=== PATIENT | female | born 1950 | race Caucasian/White ===

== ENCOUNTER → 2017-01-30 | Outpatient (CLI) | payer BC ==
[~2017-01-30] MED LIST: ACHD5005 PO; DULO60CA6 PO; ESTR1TAB24 PO; GBPN100C PO; PREMPRO; ZLP10T; [UNRECOGNIZED DRUG - OTHER]
--- NOTE | 2017-01-30 13:08 | Diagnostic Imaging Report ---
INDICATION: Left ankle pain. TECHNIQUE: AP, oblique, and lateral views of the left ankle were obtained. FINDINGS: There is mild posterior and plantar calcaneal spurring. No acute fracture or malalignment is identified. There is no abnormal lytic or sclerotic focus. IMPRESSION: Posterior calcaneal spurring without radiographic evidence of acute abnormality. Dictated by: Dictated on workstation # [id number]
== END ==
LOC: RAD 12:38
PROVIDERS: ATTEND Nurse Practitioner Family
DX: M77.32 Calcaneal spur, left foot (principal); M25.572 Pain in left ankle and joints of left foot
CPT/HCPCS: 73610

== ENCOUNTER → 2017-02-09 | Outpatient (CLI) | payer BC ==
--- NOTE | 2017-02-11 12:18 | Diagnostic Imaging Report ---
Bilateral screening mammogram The current study was also evaluated with a Computer Aided Detection (CAD) system. INDICATION: Screening. No current complaints stated on the questionnaire. COMPARISON: 07/13/2015. FINDINGS: The breasts are composed of heterogeneously dense parenchyma which may decrease mammographic sensitivity. There is no mass, architectural distortion, or suspicious cluster of calcifications seen. Allowing for technique and positional differences, no suspicious change is seen. IMPRESSION: Dense breasts with no definite change. ACR BI-RADS Category 2: Benign findings. Result letter will be mailed to the patient. Note: At least 10% of breast cancer is not imaged by mammography. Dictated by: Dictated on workstation # [id number]
== END ==
LOC: RAD 10:00
PROVIDERS: ATTEND Nurse Practitioner Family
DX: Z12.31 Encounter for screening mammogram for malignant neoplasm of breast (principal)
CPT/HCPCS: 77067

== ENCOUNTER → 2018-03-08 | Outpatient (CLI) | payer MEDICARE ==
--- NOTE | 2018-03-08 13:56 | Diagnostic Imaging Report ---
INDICATION: Routine screening. COMPARISON: 02/09/2017 and 07/13/2015. TECHNIQUE: 2D and 3D bilateral screening mammography was performed with CAD. FINDINGS: Scattered fibroglandular densities are identified bilaterally. The parenchymal pattern is stable. No mass or malignant appearing microcalcifications are seen. The axillae are unremarkable. IMPRESSION: No mammographic features suspicious for malignancy are identified. ACR BI-RADS Category 1: Negative. Result letter will be mailed to the patient. Note: At least 10% of breast cancer is not imaged by mammography. Dictated by: Dictated on workstation # [id number]
== END ==
LOC: RAD 12:46
PROVIDERS: ATTEND Nurse Practitioner Family
DX: Z12.31 Encounter for screening mammogram for malignant neoplasm of breast (principal)
CPT/HCPCS: 77067

== ENCOUNTER → 2019-05-03 | Outpatient (CLI) | payer MEDICARE ==
--- NOTE | 2019-05-03 14:48 | Diagnostic Imaging Report ---
INDICATION: Routine screening. COMPARISON: 03/08/2018 and 02/09/2017. TECHNIQUE: 2D and 3D bilateral screening mammography was performed with CAD. FINDINGS: Both breasts remain heterogeneously dense, limiting the sensitivity of mammography. No mass or malignant appearing microcalcifications are seen. The axillae are unremarkable. IMPRESSION: No mammographic features suspicious for malignancy are identified. ACR BI-RADS Category 1: Negative. Result letter will be mailed to the patient. Note: At least 10% of breast cancer is not imaged by mammography. Dictated by: Dictated on workstation # [id number]
== END ==
LOC: RAD 08:05
PROVIDERS: ATTEND Nurse Practitioner Family
DX: Z12.31 Encounter for screening mammogram for malignant neoplasm of breast (principal)
CPT/HCPCS: 77067

== ENCOUNTER → 2019-09-23 | Outpatient (CLI) | payer MEDICARE, OTHER ==
--- NOTE | 2019-09-23 10:24 | Diagnostic Imaging Report ---
PROCEDURE: US Thyroid. TECHNIQUE: Multiple real-time grayscale images were obtained of the thyroid in various projections. INDICATION: Dysphagia. COMPARISON: None available. FINDINGS: Right thyroid lobe: Right hemithyroidectomy has been performed. There are no features of recurrent/residual thyroid tissue in the surgical bed. Isthmus: The thyroid isthmus is normal in echogenicity and thickness measuring 0.3 cm. Left thyroid lobe: The left thyroid lobe measures 5.3 x 2.1 x 2.2 cm. There is a single spongiform-appearing circumscribed nodule in the lower pole measuring 0.5 x 0.4 x 0.5 cm. This is wider than tall and has no associated mineralizations. IMPRESSION: 1. Right hemithyroidectomy without features of recurrent/residual soft tissue in the surgical bed. 2. Benign subcentimeter left thyroid nodule. No dedicated pelvic imaging is required based on morphology. ACR TI-RADS: TR1 (0). TI-RADS Recommendations:TR1 - Benign. No FNA Dictated by: Dictated on workstation # [id number]
== END ==
LOC: RAD 08:36
PROVIDERS: ATTEND Nurse Practitioner Family
DX: E04.1 Nontoxic single thyroid nodule (principal); R13.10 Dysphagia, unspecified; E89.0 Postprocedural hypothyroidism
CPT/HCPCS: 76536

== ENCOUNTER → 2020-06-01 | Outpatient (CLI) | payer MEDICARE, OTHER ==
--- NOTE | 2020-06-01 13:50 | Diagnostic Imaging Report ---
INDICATION: Routine screening. Comparison is made with prior mammogram 05/03/2019 and 03/08/2018. 2-D and 3-D bilateral screening mammography was performed with CAD. Both breasts are heterogeneously dense, limiting the sensitivity of mammography. The parenchymal pattern is stable. No mass or malignant appearing microcalcifications are seen. Axillae are unremarkable. IMPRESSION: BI-RADS Category 1 No mammographic features suspicious for malignancy are identified. ACR BI-RADS Category 1: Negative. Result letter will be mailed to the patient. Note: At least 10% of breast cancer is not imaged by mammography. Dictated by: Dictated on workstation # [id number]
== END ==
LOC: RAD 10:15
PROVIDERS: ATTEND Family Medicine
DX: Z12.31 Encounter for screening mammogram for malignant neoplasm of breast (principal)
CPT/HCPCS: 77063; 77067

== ENCOUNTER → 2021-08-30 | Outpatient (CLI) | payer MEDICARE, OTHER ==
--- NOTE | 2021-09-02 09:44 | Diagnostic Imaging Report ---
INDICATION: Routine screening. Comparison is made prior mammogram from 06/01/2020 and 05/03/2019. 2-D and 3-D bilateral screening mammography was performed with CAD. Both breasts are heterogeneously dense, limiting the sensitivity of mammography. The parenchymal pattern is stable. No mass or malignant-appearing microcalcifications are seen. Axillae are unremarkable. IMPRESSION: No mammographic features suspicious for malignancy are identified. BI-RADS Category 1 ACR BI-RADS Category 1: Negative. Result letter will be mailed to the patient. Note: At least 10% of breast cancer is not imaged by mammography. Dictated by: Dictated on workstation # [id number]
== END ==
LOC: RAD 14:45
PROVIDERS: ATTEND Nurse Practitioner Family
DX: Z12.31 Encounter for screening mammogram for malignant neoplasm of breast (principal)
CPT/HCPCS: 77063; 77067

== ENCOUNTER 2021-10-09 07:53 | Outpatient (RCR) | payer MEDICARE, OTHER ==
[~2021-10-09] VITALS: Ht 165.1 cm; Wt 86.3 kg
[2021-10-09 11:35] LABS: BASOPHILS # (AUTO) 0.1 10^3/uL (0.0-0.1); BASOPHILS % (AUTO) 1 % (0-10); EOSINOPHILS # (AUTO) 0.1 10^3/uL (0.0-0.3); EOSINOPHILS % (AUTO) 2 % (0-10); HEMATOCRIT 38 % (35-52); HEMOGLOBIN 12.6 g/dL (11.5-16.0); LYMPHOCYTES # (AUTO) 2.1 10^3/uL (1.0-4.0); LYMPHOCYTES % (AUTO) 31 % (12-44); MEAN CORPUSCULAR HEMOGLOBIN 31 pg (25-34); MEAN CORPUSCULAR HGB CONC 33 g/dL (32-36); MEAN CORPUSCULAR VOLUME 93 fL (80-99); MEAN PLATELET VOLUME 10.8 fL (9.0-12.2); MONOCYTES # (AUTO) 0.5 10^3/uL (0.0-1.0); MONOCYTES % (AUTO) 7 % (0-12); NEUTROPHILS # (AUTO) 3.9 10^3/uL (1.8-7.8); NEUTROPHILS % (AUTO) 59 % (42-75); PLATELET COUNT 276 10^3/uL (130-400); WHITE BLOOD COUNT 6.7 10^3/uL (4.3-11.0)
[2021-10-09 11:42] LABS: BILIRUBIN,URINE NEGATIVE (NEGATIVE); CLARITY,URINE CLEAR; COLOR,URINE YELLOW; GLUCOSE, URINE (UA) NEGATIVE (NEGATIVE); KETONES,URINE NEGATIVE (NEGATIVE); LEUKOCYTE ESTERASE ,URINE NEGATIVE (NEGATIVE); NITRITE,URINE NEGATIVE (NEGATIVE); PROTEIN,URINE NEGATIVE (NEGATIVE)
--- NOTE | 2021-10-09 11:46 | Diagnostic Imaging Report ---
INDICATION: Preop for knee surgery. TIME OF EXAM: 11:35 AM. COMPARISON: No prior studies are available for comparison. FINDINGS: The heart size is normal. The pulmonary vascularity is unremarkable. The lungs are clear. No infiltrate, effusion, or pneumothorax is detected. IMPRESSION: No acute cardiopulmonary process is detected. Dictated by: Dictated on workstation # [id number]
[2021-10-09 11:55] LABS: ALBUMIN 3.8 GM/DL (3.2-4.5); BILIRUBIN,TOTAL 0.2 MG/DL (0.1-1.0); CALCIUM 9.7 MG/DL (8.5-10.1); CREATININE SERUM 0.76 MG/DL (0.60-1.30); INR 0.9 (0.8-1.4); POTASSIUM 3.6 MMOL/L (3.6-5.0); PROTHROMBIN TIME PATIENT 12.8 SEC (12.2-14.7); TOTAL PROTEIN 7.1 GM/DL (6.4-8.2)
[2021-10-09 12:02] LABS: BACTERIA,URINE NEGATIVE /HPF; RBC,URINE RARE /HPF; WBC,URINE RARE /HPF
[2021-10-09 12:12] LABS: ERYTHROCYTE SEDIMENTATION RATE 23 MM/HR (0-30)
[2021-10-09 12:51] VITALS: BP 141/81
[2021-10-09] MEDS ORDERED: ESTR10TA9 PO (13:13)
[2021-10-09] MEDS ORDERED: DOCU-26 PO (13:13)
[2021-10-09] MEDS ORDERED: CETI10CA PO (13:13)
[2021-10-09] MEDS ORDERED: OMEP20TA33 PO (13:13)
[2021-10-09] MEDS ORDERED: CYAN100071 PO (13:13)
[2021-10-09] MEDS ORDERED: GABA300S2 PO (13:13)
[2021-10-09] MEDS ORDERED: ZOLP5TAB7 PO (13:13)
[2021-10-09] MEDS ORDERED: MV-M1TAB20 PO (13:13)
[2021-10-09] MEDS ORDERED: DULO60CA59 PO (13:13)
[2021-10-09] MEDS ORDERED: IBUP-1773 PO (13:13)
[2021-10-09] MEDS ORDERED: MTP25TSR PO ×2 (13:13)
== END 2021-10-09 13:32 | disposition home or self-care (01) ==
LOC: PREOP 07:53 → EDSTATUS 10:00 → PREOP 13:32
PROVIDERS: ATTEND Orthopaedic Surgery
DX: Z01.818 Encounter for other preprocedural examination (principal); M17.12 Unilateral primary osteoarthritis, left knee; R10.13 Epigastric pain; R11.0 Nausea; Z96.652 Presence of left artificial knee joint
CPT/HCPCS: 36415; 71046; 80053; 81000; 85025; 85610; 85652; 86850; 86900; 86901; 87081; 93005

== ENCOUNTER 2021-10-16 05:48 | Inpatient (IN) | payer MEDICARE, OTHER ==
--- NOTE | 2021-10-08 17:39 | HISTORY AND PHYSICAL ---
DATE OF SERVICE: ADMISSION HISTORY AND PHYSICAL This will be for inpatient admission on 10/16/2021 for left total knee arthroplasty. The patient will require regular inpatient admission due to pain management, need for physical therapy, gait abnormalities and comorbidities. HISTORY: The patient is a 70-year-old female with long-standing progressive left knee pain. She has undergone treatment with injections as well as arthroscopy and activity modifications. Her pain has progressed to the point where she is having difficulty with activities of daily living and pain in her adjacent joints. She reports occasional instability in her knee due to pain. Radiographs reveal severe medial and patellofemoral arthrosis with complete loss of joint spaces. Due to functional impairment, the patient has elected to proceed with surgical intervention. REVIEW OF SYSTEMS: No chest pain, no shortness of breath, no dysuria. PAST MEDICAL HISTORY: Back pain, depression, hypertension, diabetes, COVID-19. PAST SURGICAL HISTORY: section, cholecystectomy, hysterectomy, thyroidectomy, left knee arthroscopy. FAMILY HISTORY: Significant for ischemic heart disease, hypertension. PRIMARY CARE PROVIDER: Dr. Sweeney. MEDICATIONS: Stool softener, metoprolol, Zyrtec, Prilosec, esterase, Cymbalta, calcium, ibuprofen, zolpidem, gabapentin, vitamin B12. ALLERGIES: No known drug allergies. SOCIAL HISTORY: The patient denies alcohol and tobacco use. PHYSICAL EXAMINATION: GENERAL: The patient is well developed, well nourished, in no acute distress. HEENT: Normocephalic, atraumatic. Pupils are equal, round and reactive to light. Oropharynx is clear. NECK: Supple, with no lymphadenopathy. LUNGS: Clear to auscultation bilaterally. HEART: Regular rate and rhythm. ABDOMEN: Soft, nontender, nondistended. EXTREMITIES: The left knee demonstrates varus alignment. No skin lesions are noted. She has no varus or valgus laxity. Negative anterior and posterior drawer. Range of motion is 0/2/125. She is tender along the medial femoral condyle and has pain medially with [place]'s. She has pain with patellar loading and ambulates with an antalgic gait. IMPRESSION: Severe left knee osteoarthritis, unresponsive to conservative measures. PLAN: Left total knee arthroplasty. The risks, benefits, options, ramifications and recovery have been discussed at length with the patient. She understands and wishes to proceed. Job ID: [id number] DocumentID: [id number] Dictated Date: 10/01/2021 13:22:15 Process Control Tech Date: 10/01/2021 13:45:05 Dictated By: SOPHIA TAVAREZ MD
[2021-10-16] VITALS (13 sets, daily range): BP systolic 123–166; BP diastolic 57–95
[~2021-10-16] VITALS: Ht 165 cm; Wt 86.3 kg
[~2021-10-16 05:48] MED LIST changes: +CETI10CA PO; +CYAN100071 PO; +DOCU-26 PO; +DULO60CA59 PO; +ESTR10TA9 PO; +GABA300S2 PO; +IBUP-1773 PO; +MTP25TSR PO; +MV-M1TAB20 PO; +OMEP20TA33 PO; +ZOLP5TAB7 PO
[2021-10-16] MEDS ORDERED: NEOSTIGMINE 3 MG/3 ML VIAL ONE (06:46)
[2021-10-16] MEDS ORDERED: ONDANSETRON 4 MG/2 ML (SDV) Z0FRAN ONE (06:46)
[2021-10-16] MEDS ORDERED: ROCURONIUM 10 MG/ML 5 ML SYRINGE IV ONE (06:46)
[2021-10-16] MEDS ORDERED: proPOfol 200 MG/20 ML (DIPRIVAN) VIAL IV ONE (06:46)
[2021-10-16] MEDS ORDERED: GLYCOPYRROLATE 0.2 MG/ML (ROBINUL) 2 ML VIAL ONE (06:46)
[2021-10-16] MEDS ORDERED: LIDOCAINE PF 2% 5 ML (XYLOCAINE) VIAL ONE (06:46)
[2021-10-16] MEDS ORDERED: fentaNYL INJ 100 MCG/2 ML AMP ONE (06:47)
[2021-10-16] MEDS ORDERED: MIDAZOLAM 2 MG/2 ML (VERSED) VIAL ONE (06:47)
[2021-10-16] MEDS ORDERED: BUPIVACAINE 0.25% 30 ML (SENSORCAINE) VIAL ONE (06:49)
[2021-10-16] MEDS: LACTATED RINGERS 1,000 ML IV PRN ×2 (07:03→08:04)
[2021-10-16] MEDS: CEFUROXIME INJECTION 1,500 MG in NS (IVPB) 50 ML IV ONE ×2 (07:29→08:01)
[2021-10-16] MEDS ORDERED: NALOXONE 0.4 MG/ML 1 ML (NARCAN) VIAL IV PRN (07:30)
[2021-10-16] MEDS ORDERED: morphine PCA 100 MG/100 ML BAG IV PRN (07:30)
[2021-10-16] MEDS ORDERED: HYDROmorphone 2 MG/ML VIAL (DILAUDID) IV ONE (07:30)
[2021-10-16] MEDS ORDERED: diphenhydrAMINE 50 MG/ML INJ (BENADRYL) IVP PRN (07:30)
[2021-10-16] MEDS ORDERED: ONDANSETRON 4 MG/2 ML (SDV) Z0FRAN IVP PRN ×2 (07:30)
[2021-10-16] MEDS ORDERED: morphine INJ 10 MG/ML 1ML (SYR OR VIAL) IVP ONE (07:30)
--- NOTE | 2021-10-16 07:30 | Progress Note-Post Operative ---
Post-Operative Progess Note Surgeon (s)/Lamp Cleaner (s) Surgeon SOPHIA TAVAREZ MD Lamp Cleaner: Parish Garcia Pre-Operative Diagnosis left knee primary osteoarthritis Post-Operative Diagnosis left knee primary osteoarthritis Procedure & Operative Findings Date of Procedure 10/16/21 Procedure Performed/Findings left total knee arthroplasty Anesthesia Type GETA Estimated Blood Loss Estimated blood loss (mL): minimal Specimens/Packing Specimens Removed none Packing: none SOPHIA TAVAREZ MD Oct 16, 2021 07:30
--- NOTE | 2021-10-16 07:30 | Progress Note-Pre Operative ---
Pre-Operative Progress Note H&P Reviewed The H&P was reviewed, patient examined and no changes noted. Date Seen by Provider: Oct 16, 2021 Time Seen by Provider: 07:22 Date H&P Reviewed: Oct 16, 2021 Time H&P Reviewed: 07:11 Pre-Operative Diagnosis: left knee primary osteoarthritis SOPHIA TAVAREZ MD Oct 16, 2021 07:29
--- NOTE | 2021-10-16 07:32 | D/C HH Face to Face Order ---
D/C Face to Face Orders Reconcile Patient Problems Problems Reviewed?: Yes Instructions for Patient Via [employer], Patient Instructions/FollowUp: three weeks Physician to follow Patient: three weeks Discharge Diet for Home: Regular Diet Patient Data-Allergies,Ht & Wt Patient Allergies: Coded Allergies: No Known Drug Allergies (Verified , 12/10/09) Home Health Need/Face to Face Date of Face to Face: Oct 16, 2021 Clinical Findings: Muscle weakness, Pain with ambulation I have seen Pt kizz-ul-pfxi: Yes Discharged To: Home Diagnosis/Conditions: left total knee arthroplasty Patient is Homebound due to: Muscle weakness, Pain w/ambulation Homebound Status Due to the above stated illness, injury or surgical procedure (medical condition or diagnosis) and associated clinical findings, the patient is homebound because of his/her inability to leave home except with aid of a supportive device and/or person AND leaving the home requires a considerable and taxing effort or is medically contraindicated. Pt req the following assistanc: Walker Home Health Nursing Orders Home Health Services Order: Physical Therapy-Evaluate & Treat DC left knee daron and apply steri strips 10/30/21 Home Health Infusion Therapy Line Start Date: Oct 16, 2021 Therapy Orders Therapy Orders: Physical Therapy, PT to assess for OT Therapy Specific Orders: Eval assistive deivces, Teach enviro modificatio ns/safety, Gait training, Increase strength/endurance, Provider maintenance therapy, Restore ROM Certify Stmt I certify that this patient is under my care and that I, a nurse practitioner or a physician; a surgeon assistant working with me, had a face to face encounter that - meets the physician face to face encounter requirements with this patient as dated. SOPHIA TAVAREZ MD Oct 16, 2021 07:32
[2021-10-16] MEDS ORDERED: TRANEXAMIC ACID 100 MG/ML 10 ML INJECTION ONE (07:36)
[2021-10-16] MEDS ORDERED: INTRA-ARTICULAR IU ONE ×5 (07:45)
[2021-10-16] MEDS ORDERED: HYDROmorphone 2 MG/ML VIAL (DILAUDID) ONE (07:59)
[2021-10-16] MEDS ORDERED: SEVOFLURANE (ULTANE) 15 ML INHAL SOLN ONE (08:50)
--- NOTE | 2021-10-16 09:43 | Diagnostic Imaging Report ---
INDICATION: Status post left knee replacement COMPARISON: None. FINDINGS: Two views of the left knee were obtained. Expected postoperative changes are seen from left knee total arthroplasty. Femoral and tibial components appear well-seated. There is no evidence of periprosthetic fracture. There is a small amount of subcutaneous emphysema in the soft tissues over the knee, skin daron are seen centrally over the anterior aspect of the knee. No unexpected radiopaque foreign bodies are identified. IMPRESSION: Expected postsurgical changes from left knee total arthroplasty, as described above. No unexpected radiopaque foreign bodies. Dictated by: Dictated on workstation # [id number]
[2021-10-16] MEDS: NS IV 1000 ML 1,000 ML IV SCH ×3 (10:11→22:44)
--- NOTE | 2021-10-16 11:18 | Progress Note ---
Standard Progress Note Progress Notes/Assess & Plan Date Seen by a Provider: Oct 16, 2021 Time Seen by a Provider: 11:17 Final Diagnosis no complaints radiographs--HW well positioned without fracture LLE--2 plus DP pulse with brisk cap refill. Intact DF and PF of toes and ankle sensation intact throughout s/p LTKA mobilize as able SOPHIA TAVAREZ MD Oct 16, 2021 11:18
[2021-10-16] MEDS: SENNA W/DOCUSATE (SENOKOT S) TABLET PO SCH ×2 (11:54→21:29)
--- NOTE | 2021-10-16 14:10 | Physical Therapy Evaluation ---
PT Evaluation-General Medical Diagnosis Admission Date Oct 16, 2021 at 05:48 Medical Diagnosis: left TKA Onset Date: Oct 16, 2021 Therapy Diagnosis Therapy Diagnosis: impaired mobility, strength, ROM Referral Physician: Jose Reason for Referral: Evaluation/Treatment Medical History Additional Medical History PAST MEDICAL HISTORY: Back pain, depression, hypertension, diabetes, COVID-19. PAST SURGICAL HISTORY: section, cholecystectomy, hysterectomy, thyroidectomy, left knee arthroscopy. Reviewed History: Yes Social History Home: Multilevel Current Living Status: Spouse Entry Into Home: Stairs With Railing PT Steps Into Home: 5 Prior Prior Level of Function SCALE: Activities may be completed with or without assistive devices. 8-Jymzwhuome-tbqdagf completes the activity by him/herself with no assistance from a helper. 5-Set-up or Clean-up Assistance-helper sets up or cleans up; patient completes activity. Mays assists only prior to or following the activity. 4-Supervision or Touching Assistance-helper provides verbal cues and/or touching/steadying and/or contact guard assistance as patient completes activity. Assistance may be provided throughout the activity or intermittently. 3-Partial/Moderate Assistance-helper does LESS THAN HALF the effort. Mays lifts, holds or supports trunk or limbs, but provides less than half the effort. 2-Substantial/Maximal Assistance-helper does MORE THAN HALF the effort. Mays lifts or holds trunk or limbs and provides more than half the effort. 4-Zmpkmjybx-ogojbl does ALL the effort. Patient does none of the effort to complete the activity. Or, the assistance of 2 or more helpers is required for the patient to complete the activity. If activity was not attempted, code reason: 7-Patient Refused. 9-Not Applicable-not attempted and the patient did not perform the activity before the current illness, exacerbation or injury. 10-Not Attempted due to Environmental Limitations-(lack of equipment, weather restraints, etc.). 88-Not Attempted due to Medical Conditions or Safety Concerns. Bed Mobility: 6 Transfers (B,C,W/C): 6 Gait: 6 Stairs: 6 Indoor Mobility (Ambulation): Independent Stairs: Independent PT Evaluation-Current Subjective Patient in bed pre tx, agrees to PT, has 5/10 pain in left knee. Pt/Family Goals to be independent at home Objective Patient Orientation: Person, Place, Situation Attachments: Oxygen, IV ROM/Strength ROM Lower Extremities left knee flexion 90 degrees, extension +5 degrees Sensory Vision: Functional Hearing: Functional Sensation Right Lower Extremit: Intact Sensation Left Lower Extremity: Intact Transfers Roll Left to Right (QC): 6 Sit to Lying (QC): 6 Lying to Sitting/Side of Bed(Q: 6 Sit to Stand (QC): 4 Gait Does the Patient Walk?: Yes Mode of Locomotion: Walk Anticipated Mode of Locomotion: Walk Walk 10 feet (QC): 4 Distance: 40' Gait Assistive Device: FWW Comments/Gait Description slow but stead ambulation, good step through Balance Sitting Static: Normal Sitting Dynamic: Normal Standing Static: Good Standing Dynamic: Good Treatment LLE total knee protocol x10 (AP, QS, HS, SLR, SAQ) Assessment/Needs Patient in bed post tx with nurse call, phone, tray, all needs met. Patient has impaired mobility, strength, ROM. Just needs CGA for standing and transfers Rehab Potential: Fair PT Director Funds Development Goals [facility] Goals PT Director Funds Development Goals Time Frame: Oct 23, 2021 Roll Left & Right (QC): 6 Sit to Lying (QC): 6 Lying-Sitting on Side/Bed(QC): 6 Sit to Stand (QC): 6 Chair/Awj-gu-Jnbte Xfer(QC): 6 Walk 10 feet (QC): 6 Walk 50ft with 2 Turns (QC): 6 Walk 150 ft (QC): 6 1 Step (curb) (QC): 4 4 Steps (QC): 4 PT Plan Problem List Problem List: Activity Tolerance, Functional Strength, Safety, Balance, Gait, Transfer, Bed Mobility, ROM Treatment/Plan Treatment Plan: Continue Plan of Care Treatment Plan: Bed Mobility, Education, Functional Activity Alirio, Functional Strength, Gait, Safety, Therapeutic Exercise, Transfers Treatment Duration: Oct 23, 2021 Frequency: 11 times per week Estimated Hrs Per Day: .25 hour per day Patient and/or Family Agrees t: Yes Safety Risks/Education Patient Education: Gait Training, Transfer Techniques, Correct Positioning, Safety Issues Teaching Recipient: Patient Teaching Methods: Demonstration, Discussion Response to Teaching: Reinforcement Needed Discharge Recommendations Plan Patient will perform bed mobility and transfer training, balance and endurance training, functional strengthening, stair training, gait training, and education, to improve functional mobility and independence at home. Therapy Discharge Recommendati: Home & Family, Post Acute PT Time/GCodes Time In: 1319 Time Out: 1335 Total Billed Treatment Time: 16 Total Billed Treatment 1 visit EVL 16' CATIE RAMIREZ PT Oct 16, 2021 14:10
[2021-10-16] MEDS ORDERED: ZINC50TA58 PO (14:30)
[2021-10-16] MEDS ORDERED: ACHD5005 PO (14:30)
[2021-10-16] MEDS ORDERED: GABA300C PO (14:30)
[2021-10-16] MEDS ORDERED: ASPI-1238 PO (14:30)
[2021-10-16] MEDS ORDERED: METF-397 PO (14:30)
[2021-10-16] MEDS ORDERED: ESTR2TAB3 PO (14:30)
[2021-10-16] MEDS ORDERED: CYCL1DRO OU (14:30)
[2021-10-16] MEDS ORDERED: CHOL100048 PO (14:30)
--- NOTE | 2021-10-16 14:32 | OPERATIVE REPORT ---
DATE OF SERVICE: 10/16/2021 PREOPERATIVE DIAGNOSIS: Left knee primary osteoarthritis. POSTOPERATIVE DIAGNOSIS: Left knee primary osteoarthritis. PROCEDURE PERFORMED: Left total knee arthroplasty. SURGEON: Jason Tavarez MD. FAST FOOD CREW LEAD: Parish Garcia, who assisted throughout the procedure and closed the incision. ANESTHESIA: General endotracheal plus femoral nerve block by Dr. Kraus. TOURNIQUET TIME: Approximately 60 minutes at 300 mmHg. ESTIMATED BLOOD LOSS: Minimal. DRAINS: None. COMPLICATIONS: None. POSTOPERATIVE PLAN: Routine protocol. The patient was transferred to the recovery room awake and in stable condition. MATERIALS: Microport cemented size 4 femur, cemented size 3 tibia with a 10 mm insert and cemented size 29 patellar button. STATEMENT OF MEDICAL NECESSITY: The patient is a 70-year-old female with longstanding progressive left knee pain. She has undergone treatment with injections, arthroscopy, anti-inflammatories, and rest without relief. Due to functional impairment and failure to improve with conservative measures, the patient elected to proceed with surgical intervention. DESCRIPTION OF PROCEDURE: After risks and benefits of the procedure were discussed and questions were answered, an informed consent was signed and placed on chart, the operative site was confirmed in preoperative holding area initialed by the surgeon. The patient was then transferred to the operating room and after adequate levels of general endotracheal anesthetic were obtained, a timeout was called, confirming the operative site. The left lower extremity was prepped and draped in the usual sterile fashion with the leg elevated and the knee flexed. Tourniquet was inflated to 300 mmHg. Standard anterior approach was utilized. Hemostasis was obtained with cautery. Medial parapatellar arthrotomy was performed leaving 1 cm cuff on the patella for later reattachment. A portion of the fat pad was resected. A subperiosteal release was performed on the proximal medial tibia being careful to stay on the bony surface. The ACL was resected. Intramedullary guide was passed into the femoral canal and the distal cutting block was placed. Distal cut was made and the femur sized to a size 4. The 4 cutting block was placed parallel to the epicondylar axis and cuts were made from posterior to anterior. Subperiosteal release was then carefully performed on the posterior distal femur, being careful to stay on the bony surface. The intramedullary guide was then passed into the tibia. The cutting block was placed. The drop gene transected the intermalleolar axis and the cut was made. The three baseplate provided excellent coverage. This was pinned into position and then prepared with the drill and keel punch after ensuring that the drop gene was well positioned. The femoral trial was placed and the trochlear cut was made. The patella was then prepared by resecting 10 mm off the undersurface. The peg guide was placed and the peg holes were drilled. The trials were inserted with a 10 mm insert. Full extension was easily obtained with 20 degrees of flexion with gravity was easily obtained. There was no anterior/posterior or medial/lateral laxity in flexion or extension. The patella tracked well. The trials were removed. The joint was irrigated with pulse lavage. The articular block was placed in the posterior capsule, medial and lateral retinaculum, extensor mechanism, and subcutaneous tissues. The bone ends were irrigated and dried and the tibial baseplate was cemented into position. Excessive cement was removed, the superior surface was irrigated and dried and the polyethylene insert was placed. The distal femur was irrigated and dried and the femoral prosthesis was cemented into position. Excessive cement was removed. The knee was brought out into full extension until cement had cured. The undersurface of the patella was irrigated and dried and the patellar button was cemented into position. Once the cement had cured, the knee was taken through range of motion. Full extension was easily obtained under 20 degrees of flexion with gravity was easily obtained. There was no anterior/posterior or medial/lateral laxity in flexion or extension and the patella tracked well. The joint was further irrigated with pulse lavage. The arthrotomy was closed with #2 Tevdek in ehrgyl-vj-zmcen interrupted fashion. Knee was flexed. The repair was stable. The patella tracked well. The subcutaneous tissues were irrigated using a total of 6 liters throughout the procedure. A 0 Vicryl was used to close deep subcutaneous layer, 2-0 Vicryl for the superficial subcutaneous layer, daron used on the skin. A soft dressing was applied. The tourniquet was deflated. The patient was transferred to the recovery room awake and in stable condition. Job ID: [id number] DocumentID: [id number] Dictated Date: 10/16/2021 09:07:55 Feather Duster Winder Date: 10/16/2021 14:31:53 Dictated By: JASON TAVAREZ MD
[2021-10-16] MEDS: CEFUROXIME INJECTION 750 MG in NS (IVPB) 50 ML IV SCH ×2 (15:58→22:41)
[2021-10-16] MEDS: oxyCODONE/APAP 5/325MG (PERCOCET 5) TABLET PO PRN ×2 (16:05→21:29)
--- NOTE | 2021-10-16 20:39 | History & Physicial ---
History of Present Illness History of Present Illness Reason for visit/HPI PT IS A 70 Y/O FEMALE WHO IS A PATIENT IN MY MEDICAL [facility]ACTICE. SHE PRESENTED TO THE HOSPITAL FOR A PLANNED LEFT TOTAL KNEE REPLACEMENT. THE PATIENT REPORTS THAT SHE HAS QUITE A BIT OF PAIN THIS AFTERNOON, SHE REPORTS THAT HER KNEE IS PRETTY UNCOMFORTABLE, SHE IS UNSURE IF THE ICE PACK HAS BEEN WORKING AT ALL SINCE SHE HAD THERAPY EARLIER. Date of Admission Oct 16, 2021 at 05:48 Date Seen by a Provider: Oct 16, 2021 Time Seen by a Provider: 15:30 I consulted on this patient on 10/16/21 20:28 Attending Physician Jason Yanes MD Admitting Physician JASON YANES MD Consult GLEN LEGGETT MD Allergies and Home Medications Allergies Coded Allergies: No Known Drug Allergies (Verified , 12/10/09) Patient Home Medication List Home Medication List Reviewed: Yes Aspirin (Aspirin EC) 81 Mg Tablet.dr, 81 MG PO DAILY, (Reported) Entered as Reported by: ORLANDO GRAVES on 10/16/211429 Last Action: Reviewed Cetirizine HCl (Zyrtec) 10 Mg Capsule, 10 MG PO DAILY, (Reported) Entered as Reported by: AMAN FREIRE on 10/09/211312 Last Action: Converted Cholecalciferol (Vitamin D3) (Vitamin D3) 25 Mcg Capsule, 25 MCG PO DAILY, (Reported) Entered as Reported by: ORLANDO GRAVES on 10/16/211429 Last Action: Converted Cyanocobalamin (Vitamin B-12) (B-12) 1,000 Mcg Tablet.er, 1,000 MCG PO DAILY, (Reported) Entered as Reported by: AMAN FREIRE on 10/09/211312 Last Action: Held Cyclosporine (Restasis) 1 Each Droperette, 1 DROP OU BID, (Reported) Entered as Reported by: ORLANDO GRAVES on 10/16/211429 Last Action: Converted Docusate Sodium (Stool Softener) 100 Mg Capsule, 100 MG PO HS, (Reported) Entered as Reported by: AMAN FREIRE on 10/09/211312 Last Action: Continued Duloxetine HCl (Duloxetine HCl) 60 Mg Capsule.dr, 60 MG PO DAILY, (Reported) Entered as Reported by: AMAN FREIRE on 10/09/211312 Last Action: Converted Estradiol (Estradiol Tablet) 2 Mg Tablet, 2 MG PO HS, (Reported) Entered as Reported by: ORLANDO GRAVES on 10/16/211429 Last Action: Held Gabapentin (Neurontin) 300 Mg Capsule, 300 MG PO BID, (Reported) Entered as Reported by: ORLANDO GRAVES on 10/16/211429 Last Action: Continued Hydrocodone/Acetaminophen (Hydrocodone-Acetamin 5-325 mg) 1 Each Tablet, 1 EA PO BID PRN for PAIN-MODERATE (5-7), (Reported) Entered as Reported by: ORLANDO GRAVES on 10/16/211429 Last Action: Reviewed Metformin HCl (Metformin HCl) 500 Mg Tablet, 500 MG PO BID, (Reported) Entered as Reported by: ORLANDO GRAVES on 10/16/211429 Last Action: Continued Metoprolol Succinate (Metoprolol Succinate) 25 Mg Tab.er.24h, 25 MG PO DAILY AM, (Reported) Entered as Reported by: AMAN FREIRE on 10/09/211312 Last Action: Continued Metoprolol Succinate (Metoprolol Succinate) 25 Mg Tab.er.24h, 50 MG PO HS, (Reported) Entered as Reported by: AMAN FREIRE on 10/09/211312 Last Action: Continued Omeprazole Magnesium (Prilosec Otc) 20 Mg Tablet.dr, 20 MG PO DAILY, (Reported) Entered as Reported by: AMAN FREIRE on 10/09/211312 Last Action: Converted Zinc (Zinc) 50 Mg Tablet, 50 MG PO DAILY, (Reported) Entered as Reported by: ORLANDO GRAVES on 10/16/211429 Last Action: Held Zolpidem Tartrate (Zolpidem Tartrate) 5 Mg Tablet, 7.5 MG PO HS, (Reported) Entered as Reported by: AMAN FREIRE on 10/09/211312 Last Action: Held Discontinued Medications Duloxetine Hcl (Cymbalta) 60 Mg Capsule., 1 EACH PO DAILY, (Reported) Discontinued Reason: No Longer Taking Entered as Reported by: ROMEL FRIEND on 04/05/12 0750 Estradiol (Estradiol) 1 Mg Tablet, 1 MG PO DAILY, (Reported) Discontinued Reason: No Longer Taking Entered as Reported by: ROMEL FRIEND on 04/05/12 0750 Estradiol (Estradiol) Unknown Strength Tablet, 2 PO DAILY, (Reported) Discontinued Reason: Duplicate Order Entered as Reported by: AMAN FREIRE on 10/09/211312 Last Action: Discontinued Gabapentin (Neurontin) 100 Mg Cap, 200 MG PO TID, (Reported) Discontinued Reason: No Longer Taking Entered as Reported by: ROMEL FRIEND on 04/05/12 0750 Gabapentin (Gabapentin) 300 Mg/6 Ml Solution, 300 MG PO BID, (Reported) Discontinued Reason: Duplicate Order Entered as Reported by: AMAN FREIRE on 10/09/211312 Last Action: Discontinued Hydrocodone Bit/Acetaminophen (Lortab 5 Mg Tablet) 1 Each Tablet, 1 EACH PO Q4H, (Reported) Discontinued Reason: No Longer Taking Entered as Reported by: ROMEL FRIEND on 04/05/12 075 Ibuprofen (Ibuprofen) 600 Mg Tablet, 600 MG PO Q6H PRN for PAIN-MILD, (Reported) Discontinued Reason: No Longer Taking Entered as Reported by: AMAN FREIRE on 10/09/211312 Last Action: Discontinued Mv-Mn/Iron/FA/Herbal Cmplx#190 (Vitamin D3 Complete Caplet) 1 Each Tablet, 1 EACH PO DAILY, (Reported) Discontinued Reason: Duplicate Order Entered as Reported by: AMAN FREIRE on 10/09/211312 Last Action: Discontinued Zolpidem Tartrate (Ambien) 10 Mg Tablet, (Reported) Discontinued Reason: No Longer Taking Entered as Reported by: YU WATT on 12/06/09 0807 Past Cdzkiqi-Wmrjqp-Cgifyv Hx Patient Social History Marrital Status: Living Status: LIVES AT HOME WITH SPOUSE Employed/Student: retired Smoking Status: Former Smoker Former Smoker, Quit: Oct 10, 2007 Recent Hopitalizations: Yes Have you traveled recently?: No Alcohol Use?: No Pt feels they are or have been: No Immunizations Up To Date Date of Pneumonia Vaccine: Oct 09, 2018 Date of Influenza Vaccine: May 11, 2021 Seasonal Allergies Seasonal Allergies: Yes Surgeries Yes (HYSTERECTOMY, C/S, GALLBLADDER, THYROIDECTOMY) Section, Gallbladder, Hysterectomy, Thyroidectomy Respiratory No Currently Using CPAP: No Currently Using BIPAP: No Cardiovascular No Hypertension Neurological Yes Neuropathy Reproductive System : No Hx Reproductive Disorders: No Sexually Transmitted Disease: No Genitourinary No Gastrointestinal Yes Chronic Constipation Musculoskeletal Yes (LEFT KNEE PAIN, ARTHRITIS) Arthritis Endocrine History of Endocrine Disorders: Yes Endocrine Disorders: Diabetes, Non-Insulin dep HEENT History of HEENT Disorders: Yes (GLASSES) Loss of Vision: Denies Hearing Impairment: Denies Cancer No Psychosocial History of Psychiatric Problem: Yes Behavioral Health Disorders: Anxiety Integumentary History of Skin or Integumenta: No Blood Transfusions History of Blood Disorders: No Reviewed Nursing Assessment Reviewed/Agree w Nursing PMH: Yes Family Medical History Significant Family History: Hypertension Review of Systems Constitutional: No dizziness, No fever EENTM: hoarseness (SINCE HER SURGERY), throat pain, other; No mouth pain Respiratory: No cough, No dyspnea on exertion, No short of breath Cardiovascular: No chest pain, No palpitations Gastrointestinal: No abdominal pain; constipation (CHRONIC); No nausea, No vomiting Genitourinary: no symptoms reported Musculoskeletal: other (LEFT KNEE PAIN ) Skin: no symptoms reported Psychiatric/Neurological: Anxiety, Weakness All Other Systems Reviewed Negative Unless Noted: Yes Physical Exam Vital Signs Vital Signs - First Documented 10/16/21 10/16/21 10/16/21 06:25 09:03 10:14 Temp 37.1 Pulse 88 Resp 12 B/P (MAP) 152/82 (105) Pulse Ox 98 O2 Delivery Room Air O2 Flow Rate 10 Capillary Refill : Less Than 3 Seconds Height, Weight, BMI Height: '" Weight: lbs. oz. kg; 31.69 BMI Method: General Appearance: No Apparent Distress, WD/WN HEENT: PERRL/EOMI, Pharynx Normal Neck: Full Range of Motion, Non Tender, Supple Respiratory: Chest Non Tender, Lungs Clear, Normal Breath Sounds, No Accessory Muscle Use, No Respiratory Distress Cardiovascular: Regular Rate, Rhythm, No Murmur Gastrointestinal: Normal Bowel Sounds, No Organomegaly, No Pulsatile Mass, Non Tender, Soft Rectal: Deferred Extremity: Normal Capillary Refill (OF TOES), Other (LEFT LEG WITH KNEE IN SURGICAL DRESSING AND WITH COMPRESSION SOCKS AND ICE PACK IN PLACE) Neurologic/Psychiatric: Alert, Oriented x3, No Motor/Sensory Deficits, Normal Mood/Affect Skin: Normal Color, Warm/Dry Lymphatic: No Adenopathy Assessment/Plan Assessment and Plan LEFT KNEE OSTEOARTHRITIS STATUS POST LEFT TOTAL KNEE REPLACEMENT UNCONTROLLED POST-SURGICAL PAIN CHRONIC HYPERTENSION DIABETES MELLITUS PERIPHERAL NEUROPATHY DEPRESSION LEFT KNEE OSTEOARTHRITIS STATUS POST LEFT TOTAL KNEE REPLACEMENT WITH UNCONTROLLED POST-SURGICAL PAIN - PT ENCOURAGED TO PARTICIPATE IN THERAPY DIRECTED BY DR. YANES - PT ALSO ENCOURAGED TO USE HER CEMENTING MACHINE OPERATOR PUMP FOR APPROPRIATE PAIN CONTROL - THIS PRECISION INSTRUMENT AND TOOL MAKER FIXED HER COLD PACK FOR HER KNEE - IT HAD NOT BEEN RUNNING FOR SEVERAL HOURS. STAFF ADVISED OF NEED TO CHECK ON THE COLD PACK TO ASSURE IT IS NOT A FAULTY UNIT, PT ENCOURAGED TO LET STAFF KNOW IF THE MACHINE DOES NOT SEEM TO BE PUMPING COLD TO HER KNEE. CHRONIC HYPERTENSION - HOME REGIMEN RESTARTED, MONITOR PRESSURE RESPONSE. DIABETES MELLITUS - CHECK FSBS, RESTART METFORMIN TOMORROW MORNING. PERIPHERAL NEUROPATHY - GABAPENTIN RESTARTED. DEPRESSION - RESTARTED CYMBALTA. DVT PROPHYLAXIS WITH LOVENOX AND COMPRESSION SOCKS. GI PROPHYLAXIS WITH PPI THERAPY. ANTICIPATE PT TO BE ABLE TO DC TO HOME WITH HOME HEALTH. Admission Diagnosis LEFT KNEE OSTEOARTHRITIS STATUS POST LEFT TOTAL KNEE REPLACEMENT UNCONTROLLED POST-SURGICAL PAIN CHRONIC HYPERTENSION DIABETES MELLITUS PERIPHERAL NEUROPATHY DEPRESSION Admission Status: Inpatient Order (span 2 midnights) Reason for Inpatient Admission: INPT ADMISSION FOR LEFT TOTAL KNEE REPLACEMENT - WILL REQUIRE AT LEAST 2 MIDNIGHTS FOR PAIN CONTROL AND MONITORING POST-OP GLEN LEGGETT MD Oct 16, 2021 20:39
[2021-10-16] MEDS ORDERED: NON-FORMULARY MEDICATION 1 EA EA (Cyclosporine (Restasis) 1 DROP) OU SCH (21:00)
[2021-10-16] MEDS: DOCUSATE SODIUM 100 MG (COLACE) CAP PO SCH (21:29)
[2021-10-16] MEDS: metFORMIN 500 MG (GLUCOPHAGE) TAB PO SCH (21:29)
[2021-10-16] MEDS: GABAPENTIN 300 MG (NEURONTIN) CAP PO SCH (21:29)
[2021-10-16] MEDS: ZOLPIDEM 5 MG (AMBIEN) TAB PO SCH (22:40)
[2021-10-17] VITALS (8 sets, daily range): BP systolic 117–163; BP diastolic 76–90
[2021-10-17] MEDS: oxyCODONE/APAP 5/325MG (PERCOCET 5) TABLET PO PRN ×5 (03:58→18:40)
[2021-10-17 06:00] LABS: HEMOGLOBIN 11.2 g/dL (11.5-16.0)
[2021-10-17] MEDS: MULTIVIT W/MINERALS TAB (THERAGRAN M) PO SCH (07:04)
--- NOTE | 2021-10-17 08:05 | Progress Note ---
Standard Progress Note Progress Notes/Assess & Plan Date Seen by a Provider: Oct 17, 2021 Time Seen by a Provider: 08:04 Progress/Assessment & Plan no complaints ANASTASIA- NVI distally. dressing intact. No calf tenderness Vital Signs Date Time Temp Pulse Resp B/P (MAP) Pulse Ox O2 Delivery O2 Flow Rate FiO2 10/17/21 07:22 36.4 99 18 160/90 (113) 91 Room Air 10/17/21 03:59 36.6 100 18 148/84 (105) 92 Room Air 10/16/21 23:54 36.6 98 18 156/80 (105) 93 Room Air 10/16/21 22:00 96 Room Air 10/16/21 20:31 36.6 92 18 144/67 (92) 93 Room Air 10/16/21 15:55 36.8 94 18 123/57 (79) 95 Room Air 10/16/21 12:19 36.0 86 18 157/70 (99) 94 Simple Mask 2.00 10/16/21 12:18 36.0 86 18 157/72 (100) 94 Nasal Cannula 2.00 10/16/21 12:17 36.0 86 18 166/72 (103) 94 Simple Mask 2.00 10/16/21 10:14 36.4 88 16 166/72 (103) 94 Simple Mask 2.00 10/16/21 10:00 Nasal Cannula 2.00 10/16/21 09:50 36.4 10 148/75 (99) 94 OxyMask 2 10/16/21 09:48 OxyMask 2 10/16/21 09:44 OxyMask 2 10/16/21 09:40 11 148/73 (98) 95 OxyMask 4 10/16/21 09:35 OxyMask 4 10/16/21 09:30 10 159/83 (108) 97 10 10/16/21 09:20 11 158/95 (116) 96 OxyMask 10 10/16/21 09:19 OxyMask 10 10/16/21 09:10 15 151/95 (113) 95 OxyMask 10 10/16/21 09:03 37.1 12 152/82 (105) 96 OxyMask 10 10/16/21 09:03 OxyMask 10 I & O 10/17/21 07:00 Intake Total 2600 ml Balance 2600 ml Laboratory Tests Test 10/17/21 05:42 Range/Units Hemoglobin 11.2 L 11.5-16.0 g/dL Hematocrit 35 35-52 % s/p LTKA PT/OT SOPHIA TAVAREZ MD Oct 17, 2021 08:05
--- NOTE | 2021-10-17 08:27 | Progress Note ---
Subjective Subjective Date Seen by Provider: Oct 17, 2021 Time Seen by Provider: 08:20 Review of Systems General: No Chills, No Fatigue HEENT: No Head Aches Pulmonary: No Dyspnea, No Cough Cardiovascular: No: Chest Pain Gastrointestinal: No: Nausea, Abdominal Pain Musculoskeletal: leg pain Neurological: No: Weakness All Other Systems Reviewed All Other Systems Reviewed: Yes Objective Exam Vital Signs Vital Signs Date Time Temp Pulse Resp B/P (MAP) Pulse Ox O2 Delivery O2 Flow Rate FiO2 10/17/21 07:22 36.4 99 18 160/90 (113) 91 Room Air 10/17/21 03:59 36.6 100 18 148/84 (105) 92 Room Air 10/16/21 23:54 36.6 98 18 156/80 (105) 93 Room Air 10/16/21 22:00 96 Room Air 10/16/21 20:31 36.6 92 18 144/67 (92) 93 Room Air 10/16/21 15:55 36.8 94 18 123/57 (79) 95 Room Air 10/16/21 12:19 36.0 86 18 157/70 (99) 94 Simple Mask 2.00 10/16/21 12:18 36.0 86 18 157/72 (100) 94 Nasal Cannula 2.00 10/16/21 12:17 36.0 86 18 166/72 (103) 94 Simple Mask 2.00 10/16/21 10:14 36.4 88 16 166/72 (103) 94 Simple Mask 2.00 10/16/21 10:00 Nasal Cannula 2.00 10/16/21 09:50 36.4 10 148/75 (99) 94 OxyMask 2 10/16/21 09:48 OxyMask 2 10/16/21 09:44 OxyMask 2 10/16/21 09:40 11 148/73 (98) 95 OxyMask 4 10/16/21 09:35 OxyMask 4 10/16/21 09:30 10 159/83 (108) 97 10 10/16/21 09:20 11 158/95 (116) 96 OxyMask 10 10/16/21 09:19 OxyMask 10 10/16/21 09:10 15 151/95 (113) 95 OxyMask 10 10/16/21 09:03 37.1 12 152/82 (105) 96 OxyMask 10 10/16/21 09:03 OxyMask 10 I & O 10/17/21 07:00 Intake Total 2600 ml Balance 2600 ml General Appearance: No Apparent Distress, WD/WN HEENT: PERRL/EOMI, Pharynx Normal Neck: Full Range of Motion, Non Tender, Supple Respiratory: Chest Non Tender, Lungs Clear, Normal Breath Sounds, No Accessory Muscle Use, No Respiratory Distress Cardiovascular: Regular Rate, Rhythm, No Murmur Gastrointestinal: Normal Bowel Sounds, No Organomegaly, No Pulsatile Mass, Non Tender, Soft Rectal: Deferred Extremity: Normal Capillary Refill (OF TOES), Other (LEFT LEG WITH KNEE IN SURGICAL DRESSING AND WITH COMPRESSION SOCKS AND ICE PACK IN PLACE) Neurologic/Psychiatric: Alert, Oriented x3, No Motor/Sensory Deficits, Normal Mood/Affect Skin: Normal Color, Warm/Dry Lymphatic: No Adenopathy Results Lab Laboratory Tests 10/17/21 05:42: Hemoglobin 11.2L, Hematocrit 35 Assessment/Plan Assessment/Plan Admission Dx LEFT KNEE OSTEOARTHRITIS STATUS POST LEFT TOTAL KNEE REPLACEMENT UNCONTROLLED POST-SURGICAL PAIN CHRONIC HYPERTENSION DIABETES MELLITUS PERIPHERAL NEUROPATHY DEPRESSION Assessment and Plan LEFT KNEE OSTEOARTHRITIS STATUS POST LEFT TOTAL KNEE REPLACEMENT UNCONTROLLED POST-SURGICAL PAIN CHRONIC HYPERTENSION DIABETES MELLITUS PERIPHERAL NEUROPATHY DEPRESSION LEFT KNEE OSTEOARTHRITIS STATUS POST LEFT TOTAL KNEE REPLACEMENT WITH UNCONTROLLED POST-SURGICAL PAIN - PT ENCOURAGED TO PARTICIPATE IN THERAPY DIRECTED BY DR. TAVAREZ - PT ALSO ENCOURAGED TO USE HER EDGE INKER UPPERS PUMP FOR APPROPRIATE PAIN CONTROL - USE ORAL PAIN MEDICATION SCHEDULED TID AND PRN FOR UNCONTROLLED SYMPTOMS CHRONIC HYPERTENSION - HOME REGIMEN RESTARTED, MONITOR PRESSURE RESPONSE. DIABETES MELLITUS - CHECK FSBS, RESTARTED METFORMIN ON 10/17/21 PERIPHERAL NEUROPATHY - GABAPENTIN RESTARTED. DEPRESSION - RESTARTED CYMBALTA. DVT PROPHYLAXIS WITH LOVENOX AND COMPRESSION SOCKS. GI PROPHYLAXIS WITH PPI THERAPY. ANTICIPATE PT TO BE ABLE TO DC TO HOME WITH HOME HEALTH. Admission Dx LEFT KNEE OSTEOARTHRITIS STATUS POST LEFT TOTAL KNEE REPLACEMENT UNCONTROLLED POST-SURGICAL PAIN CHRONIC HYPERTENSION DIABETES MELLITUS PERIPHERAL NEUROPATHY DEPRESSION Clinical Quality Measures Admission Status Admission Dx LEFT KNEE OSTEOARTHRITIS STATUS POST LEFT TOTAL KNEE REPLACEMENT UNCONTROLLED POST-SURGICAL PAIN CHRONIC HYPERTENSION DIABETES MELLITUS PERIPHERAL NEUROPATHY DEPRESSION GLEN LEGGETT MD Oct 17, 2021 08:27
[2021-10-17] MEDS: GABAPENTIN 300 MG (NEURONTIN) CAP PO SCH ×2 (09:06→21:03)
[2021-10-17] MEDS: ASPIRIN E.C. 81 MG (ECOTRIN) TAB PO SCH (09:06)
[2021-10-17] MEDS: metFORMIN 500 MG (GLUCOPHAGE) TAB PO SCH ×2 (09:06→21:04)
[2021-10-17] MEDS: SENNA W/DOCUSATE (SENOKOT S) TABLET PO SCH ×2 (09:06→21:04)
[2021-10-17] MEDS: ENOXAPARIN 30 MG/0.3 ML (LOVENOX) SYR SC SCH ×2 (09:06→21:03)
[2021-10-17] MEDS: ARTIFICAL TEARS 0.4 ML UNIT DOSE (REFRESH PLUS) OU SCH ×2 (09:07→21:04)
[2021-10-17] MEDS: PANTOPRAZOLE 20 MG TABLET (PROTONIX) PO SCH (09:07)
[2021-10-17] MEDS: DULoxetine 30 MG (CYMBALTA) CAP PO SCH (09:07)
[2021-10-17] MEDS: LORATADINE (CLARITIN) 10 MG TAB PO SCH (09:07)
[2021-10-17] MEDS: VITAMIN D3 25 MCG (1,000 UNITS) TABLET PO SCH (09:07)
--- NOTE | 2021-10-17 09:38 | Physical Therapy Daily Note ---
PT Daily Note-Current Subjective Patient reluctantly agrees to PT. Pain Numeric Pain Scale: 7 Location: Left Location Body Site: Knee Pain Description: Acute Comment: PRIMARY CARE COORDINATOR and pain pills Mental Status Patient Orientation: Normal For Age Attachments: IV Transfers SCALE: Activities may be completed with or without assistive devices. 2-Xqxhbfwwvr-nughrdh completes the activity by him/herself with no assistance from a helper. 5-Set-up or Clean-up Assistance-helper sets up or cleans up; patient completes activity. [place] assists only prior to or following the activity. 4-Supervision or Touching Assistance-helper provides verbal cues and/or touching/steadying and/or contact guard assistance as patient completes activity. Assistance may be provided throughout the activity or intermittently. 3-Partial/Moderate Assistance-helper does LESS THAN HALF the effort. [place] lifts, holds or supports trunk or limbs, but provides less than half the effort. 2-Substantial/Maximal Assistance-helper does MORE THAN HALF the effort. [place] lifts or holds trunk or limbs and provides more than half the effort. 1-Yqngbuyfo-jyxymd does ALL the effort. Patient does none of the effort to complete the activity. Or, the assistance of 2 or more helpers is required for the patient to complete the activity. If activity was not attempted, code reason: 7-Patient Refused. 9-Not Applicable-not attempted and the patient did not perform the activity before the current illness, exacerbation or injury. 10-Not Attempted due to Environmental Limitations-(lack of equipment, weather restraints, etc.). 88-Not Attempted due to Medical Conditions or Safety Concerns. Sit to Lying (QC): 6 Sit to Stand (QC): 4 Chair/Yen-if-Wwgma Xfer(QC): 4 Toilet Transfer (QC): 6 Gait Training Distance: 150' Walk 10 feet (QC): 4 Walk 50 ft with 2 Turns(QC): 4 Walk 150 ft (QC): 4 Gait Assistive Device: FWW CGA for safety/very slow, step to gait sequence/antalgic Exercises Supine Ex: Ankle pumps, Heel Slides, Straight leg raise Supine Reps: 10 Seated Therapy Exercises: Long arc quads Seated Reps: 15 Assessment Patient progressing with treatment plan. Appears to self limit, however, does complete activity with encouragement. PT Longterm Goals Longterm Goals PT Longterm Goals Time Frame: Oct 23, 2021 Roll Left & Right (QC): 6 Sit to Lying (QC): 6 Lying-Sitting on Side/Bed(QC): 6 Sit to Stand (QC): 6 Chair/Pye-rd-Xlisk Xfer(QC): 6 Walk 10 feet (QC): 6 Walk 50ft with 2 Turns (QC): 6 Walk 150 ft (QC): 6 1 Step (curb) (QC): 4 4 Steps (QC): 4 PT Plan Treatment/Plan Treatment Plan: Continue Plan of Care Treatment Plan: Bed Mobility, Education, Functional Activity Alirio, Functional Strength, Gait, Safety, Therapeutic Exercise, Transfers Treatment Duration: Oct 23, 2021 Frequency: 11 times per week Estimated Hrs Per Day: .25 hour per day Patient and/or Family Agrees t: Yes Time/GCodes Time In: 805 Time Out: 829 Total Billed Treatment Time: 24 Total Billed Treatment 1 visit GT 15 min EX 9 min KAL GOYAL PT Oct 17, 2021 09:38
[2021-10-17] MEDS ORDERED: METHYLNALTREXONE 12 MG/0.6 ML (RELISTOR) VIAL SQ ONE (09:45)
--- NOTE | 2021-10-17 09:51 | Occupational Therapy Eval ---
OT Evaluation-General/PLF Medical Diagnosis Admission Date Oct 16, 2021 at 05:48 Medical Diagnosis: left TKA Onset Date: Oct 16, 2021 Therapy Diagnosis Therapy Diagnosis: decreased ADL status Referral Physician: Jose Referral Reason: Evaluation/Treatment Medical History Additional Medical History back pain, depression, HTN, DM, COVID-19 Current History s/p L TKA 10/16/21 Social History Home: Multilevel Current Living Status: Spouse Entry Into Home: Stairs With Railing Steps Into Home: 5 bedrooms and bathroom located on 1st floor ADL-Prior Level of Function SCALE: Activities may be completed with or without assistive devices. 4-Rukslbjkgu-mghryiy completes the activity by him/herself with no assistance from a helper. 5-Set-up or Clean-up Assistance-helper sets up or cleans up; patient completes activity. [place] assists only prior to or following the activity. 4-Supervision or Touching Assistance-helper provides verbal cues and/or touching/steadying and/or contact guard assistance as patient completes activity. Assistance may be provided throughout the activity or intermittently. 3-Partial/Moderate Assistance-helper does LESS THAN HALF the effort. [place] lifts, holds or supports trunk or limbs, but provides less than half the effort. 2-Substantial/Maximal Assistance-helper does MORE THAN HALF the effort. [place] lifts or holds trunk or limbs and provides more than half the effort. 1-Bygynxelr-lgfnrn does ALL the effort. Patient does none of the effort to complete the activity. Or, the assistance of 2 or more helpers is required for the patient to complete the activity. If activity was not attempted, code reason: 7-Patient Refused. 9-Not Applicable-not attempted and the patient did not perform the activity before the current illness, exacerbation or injury. 10-Not Attempted due to Environmental Limitations-(lack of equipment, weather restraints, etc.). 88-Not Attempted due to Medical Conditions or Safety Concerns. ADL PLOF Comments Pt reports IND with ADLs and functional mobility at OF, no AD/AE. Pt has a bedroom and bathroom on the first level that she is able to use. Walk in shower with built in chair and shower bench available. 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 Mental Status/Objective Patient Orientation: Normal For Age Attachments: Polar Pack Current Upper Extremity ROM WFL Upper Extremity Strength grossly 4/5 ADL-Treatment Eating (QC): 6 (Per pt report) Oral Hygiene (QC): 4 (Per pt report/clinical judgment) Upper Body Dressing (QC): 5 (per clinical judgment/pt report) Lower Body Dressing (QC): 3 (Per pt report, assist to thread LLE into pants) On/Off Footwear (QC): 3 (Per pt report, assist with L footwear.) Other Treatments Pt laying in bed, agreeable to OT evaluation/tx. Pt declined ADLs at this time, states she doesn't need to use the bathroom and she has already gotten dressed today. She declined OOB activities. OT provided education on AE available to purchase, including undergraduate internship, sock aide, and long handled sponge. Pt verbalized understanding of each tool. Pt indicates her is retired and able to help her throughout the day as needed. OT answered pt's questions regarding sh owering, and ADL performance at discharge. Pt indicates she doesn't have any concerns with her ability to complete ADLs at this time. Post tx, pt in bed, call light in reach and all needs met. Education OT Patient Education: Correct positioning, Energy conservation, Exercise program, Modified ADL techniques, Progress toward Goal/Update tx plan, Purpose of tx/functional activities, Rehab process, Use of adapted equipment Teaching Recipient: Patient Teaching Methods: Discussion Response to Teaching: Verbalize Understanding OT Credit Counselor Goals Credit Counselor Goals Time Frame: Oct 24, 2021 Eating (QC): 6 Oral Hygiene (QC): 6 Toileting Hygiene (QC): 6 Shower/Bathe Self (QC): 5 Upper Body Dressing (QC): 5 Lower Body Dressing (QC): 4 On/Off Footwear (QC): 4 Additional Goals: 1-Demonstrate ADL Tasks, 2-Verbalize Understanding, 3-Imp roveStrength/Alirio 1=Demonstrate adherence to instructed precautions during ADL tasks. 2=Patient will verbalize/demonstrate understanding of assistive devices/modifications for ADL. 3=Patient will improve strength/tolerance for activity to enable patient to perform ADL's. OT Education/Plan Problem List/Assessment Assessment: Decreased Activ Tolerance, Decreased UE Strength, Impaired Funct Balance, Impaired I ADL's, Impaired Self-Care Skills Pt would benefit from short term skilled OT services in order to provide further education on AE for LE dressing, and address further concerns pt may have with completing ADLs at discharge. Discharge Recommendations Plan/Recommendations: Continue POC Treatment Plan/Plan of Care Patient would benefit from OT for education, treatment and training to promote independence in ADL's, mobility, safety and/or upper extremity function for ADL's. Plan of Care: ADL Retraining, Functional Mobility, UE Funct Exercise/Act Treatment Duration: Oct 24, 2021 Frequency: 3 times per week (3-5 times per week) Estimated Hrs Per Day: .25 hour per day Rehab Potential: Fair Time/GCodes Start Time: 09:30 Stop Time: 09:42 Total Time Billed (hr/min): 12 Billed Treatment Time 1, HARRY RAYMOND OT Oct 17, 2021 09:51
--- NOTE | 2021-10-17 10:53 | Anesthesia-General Post-Op ---
General Patient Condition Mental Status/LOC: Same as Preop Cardiovascular: Satisfactory Nausea/Vomiting: Absent Respiratory: Satisfactory Pain: Controlled Complications: Absent Post Op Complications Complications None Follow Up Care/Instructions Patient Instructions None needed. Anesthesia/Patient Condition Patient Condition Patient is doing well, no complaints, stable vital signs, no apparent adverse anesthesia problems. No complications reported per nursing. [place] [facility]: Yes CHAVA NUGENT CRNA Oct 17, 2021 10:53
[2021-10-17] MEDS: oxyCODONE/APAP 5/325MG (PERCOCET 5) TABLET PO SCH ×2 (13:32→21:03)
--- NOTE | 2021-10-17 13:56 | Physical Therapy Daily Note ---
PT Daily Note-Current Subjective Patient agrees to PT. Pain Numeric Pain Scale: 8 Location: Left Location Body Site: Knee Pain Description: Acute Mental Status Patient Orientation: Normal For Age Attachments: IV Transfers SCALE: Activities may be completed with or without assistive devices. 4-Dqlwttzvlg-emgsjyj completes the activity by him/herself with no assistance from a helper. 5-Set-up or Clean-up Assistance-helper sets up or cleans up; patient completes activity. [place] assists only prior to or following the activity. 4-Supervision or Touching Assistance-helper provides verbal cues and/or touching/steadying and/or contact guard assistance as patient completes activity. Assistance may be provided throughout the activity or intermittently. 3-Partial/Moderate Assistance-helper does LESS THAN HALF the effort. [place] lifts, holds or supports trunk or limbs, but provides less than half the effort. 2-Substantial/Maximal Assistance-helper does MORE THAN HALF the effort. [place] lifts or holds trunk or limbs and provides more than half the effort. 1-Sxpqulnsi-svkbdm does ALL the effort. Patient does none of the effort to complete the activity. Or, the assistance of 2 or more helpers is required for the patient to complete the activity. If activity was not attempted, code reason: 7-Patient Refused. 9-Not Applicable-not attempted and the patient did not perform the activity before the current illness, exacerbation or injury. 10-Not Attempted due to Environmental Limitations-(lack of equipment, weather restraints, etc.). 88-Not Attempted due to Medical Conditions or Safety Concerns. Sit to Lying (QC): 6 Lying to Sitting/Side of Bed(Q: 6 Sit to Stand (QC): 4 Toilet Transfer (QC): 6 Gait Training Distance: 150' Walk 10 feet (QC): 4 Walk 50 ft with 2 Turns(QC): 4 Walk 150 ft (QC): 4 Gait Assistive Device: FWW very slow, minimal weight bearing left LE with knee flexed posture Exercises Supine Ex: Ankle pumps, Quad Set, Heel Slides, Straight leg raise Supine Reps: 15 Seated Therapy Exercises: Long arc quads Seated Reps: 15 Assessment Patient requires time to complete all functional tasks. Patient improving with gait speed, however, continues to perform TTWB left LE due to knee pain. Pain medication issued during session. 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 Time Frame: Oct 23, 2021 Roll Left & Right (QC): 6 Sit to Lying (QC): 6 Lying-Sitting on Side/Bed(QC): 6 Sit to Stand (QC): 6 Chair/Myv-mt-Asnwh Xfer(QC): 6 Walk 10 feet (QC): 6 Walk 50ft with 2 Turns (QC): 6 Walk 150 ft (QC): 6 1 Step (curb) (QC): 4 4 Steps (QC): 4 PT Plan Treatment/Plan Treatment Plan: Continue Plan of Care Treatment Plan: Bed Mobility, Education, Functional Activity Alirio, Functional Strength, Gait, Safety, Therapeutic Exercise, Transfers Treatment Duration: Oct 23, 2021 Frequency: 11 times per week Estimated Hrs Per Day: .25 hour per day Patient and/or Family Agrees t: Yes Time/GCodes Time In: 1310 Time Out: 1335 Total Billed Treatment Time: 25 Total Billed Treatment 1 visit GT 13 min EX 12 min KAL GOYAL PT Oct 17, 2021 13:56
[2021-10-17] MEDS: NS IV 1000 ML 1,000 ML IV SCH ×2 (21:00→23:59)
[2021-10-17] MEDS ORDERED: ESTRADIOL 1 MG TAB (ESTRACE) PO SCH (21:00)
[2021-10-17] MEDS: ZOLPIDEM 5 MG (AMBIEN) TAB PO SCH (21:03)
[2021-10-17] MEDS: DOCUSATE SODIUM 100 MG (COLACE) CAP PO SCH (21:04)
--- NOTE | 2021-10-18 01:31 | DISCHARGE SUMMARY ---
DATE OF SERVICE: DIAGNOSES: 1. Left knee primary osteoarthritis. 2. Depression. 3. Hypertension. 4. Diabetes. PROCEDURE: Left total knee arthroplasty. SUMMARY: The patient is a 70-year-old female, who underwent left total knee arthroplasty on the day of admission. Postoperatively, she did well. At time of discharge, her wound was clean and dry. She had no calf tenderness. Negative Homans sign. She was tolerating a diet well and tolerating pain with oral pain medication. CONDITION AT DISCHARGE: Good. DISCHARGE DIET: Regular. FOLLOWUP: Followup is in three weeks. ACTIVITIES: Weightbearing as tolerated with a walker. Home physical therapy will be arranged. DISCHARGE MEDICATIONS: Home medications plus one aspirin per day for 30 days and Percocet as needed for pain. Job ID: [id number] DocumentID: [id number] Dictated Date: 10/17/2021 19:28:27 [employer] Director Date: 10/18/2021 01:30:56 Dictated By: SOPHIA TAVAREZ MD
[2021-10-18 03:55] VITALS: BP 179/101
[2021-10-18 04:32] VITALS: BP 167/91
[2021-10-18 04:40] VITALS: BP 158/87
[2021-10-18] MEDS: MULTIVIT W/MINERALS TAB (THERAGRAN M) PO SCH (05:38)
[2021-10-18] MEDS: ENOXAPARIN 30 MG/0.3 ML (LOVENOX) SYR SC SCH (05:39)
[2021-10-18] MEDS: oxyCODONE/APAP 5/325MG (PERCOCET 5) TABLET PO PRN (05:39)
[2021-10-18 06:01] LABS: HEMOGLOBIN 11.5 g/dL (11.5-16.0)
--- NOTE | 2021-10-18 07:10 | Progress Note ---
Standard Progress Note Progress Notes/Assess & Plan Date Seen by a Provider: Oct 18, 2021 Time Seen by a Provider: 07:09 Progress/Assessment & Plan no complaints ANASTASIA- NVI distally. dressing intact. No calf tenderness Vital Signs Date Time Temp Pulse Resp B/P (MAP) Pulse Ox O2 Delivery O2 Flow Rate FiO2 10/17/21 07:22 36.4 99 18 160/90 (113) 91 Room Air 10/17/21 03:59 36.6 100 18 148/84 (105) 92 Room Air 10/16/21 23:54 36.6 98 18 156/80 (105) 93 Room Air 10/16/21 22:00 96 Room Air 10/16/21 20:31 36.6 92 18 144/67 (92) 93 Room Air 10/16/21 15:55 36.8 94 18 123/57 (79) 95 Room Air 10/16/21 12:19 36.0 86 18 157/70 (99) 94 Simple Mask 2.00 10/16/21 12:18 36.0 86 18 157/72 (100) 94 Nasal Cannula 2.00 10/16/21 12:17 36.0 86 18 166/72 (103) 94 Simple Mask 2.00 10/16/21 10:14 36.4 88 16 166/72 (103) 94 Simple Mask 2.00 10/16/21 10:00 Nasal Cannula 2.00 10/16/21 09:50 36.4 10 148/75 (99) 94 OxyMask 2 10/16/21 09:48 OxyMask 2 10/16/21 09:44 OxyMask 2 10/16/21 09:40 11 148/73 (98) 95 OxyMask 4 10/16/21 09:35 OxyMask 4 10/16/21 09:30 10 159/83 (108) 97 10 10/16/21 09:20 11 158/95 (116) 96 OxyMask 10 10/16/21 09:19 OxyMask 10 10/16/21 09:10 15 151/95 (113) 95 OxyMask 10 10/16/21 09:03 37.1 12 152/82 (105) 96 OxyMask 10 10/16/21 09:03 OxyMask 10 I & O 10/17/21 07:00 Intake Total 2600 ml Balance 2600 ml Laboratory Tests Test 10/17/21 05:42 Range/Units Hemoglobin 11.2 L 11.5-16.0 g/dL Hematocrit 35 35-52 % s/p LTKA PT/OT Final Diagnosis no complaints Vital Signs Date Time Temp Pulse Resp B/P (MAP) Pulse Ox O2 Delivery O2 Flow Rate FiO2 10/18/21 04:40 96 158/87 (110) 10/18/21 04:32 167/91 (116) 10/18/21 03:55 36.9 105 20 179/101 (127) 94 Room Air 10/17/21 23:56 37.1 107 18 154/81 (105) 90 Room Air 10/17/21 20:30 Room Air 10/17/21 19:42 36.2 104 18 160/87 (111) 96 Room Air 10/17/21 16:00 36.8 94 20 158/89 (112) 93 Room Air 10/17/21 11:29 36.4 100 18 117/76 (90) 98 Room Air 10/17/21 11:22 36.2 94 20 120/78 (92) 99 Room Air 10/17/21 11:19 36.4 94 18 163/90 (114) 93 Room Air 10/17/21 09:00 Room Air 10/17/21 07:22 36.4 99 18 160/90 (113) 91 Room Air l I & O 10/18/21 07:00 Intake Total 2040 ml Balance 2040 ml Laboratory Tests Test 10/18/21 05:45 Range/Units Hemoglobin 11.5 11.5-16.0 g/dL Hematocrit 35 35-52 % LLE--no calf tenderness. neg Emmanuel's incision clean and dry s/p LTKA DC after PT if doing well SOPHIA TAVARZE MD Oct 18, 2021 07:10
[2021-10-18] MEDS ORDERED: morphine INJ 4 MG/ML 1 ML (VIAL/SYRINGE) IVP PRN (07:15)
[2021-10-18 07:20] VITALS: BP 165/77
--- NOTE | 2021-10-18 09:15 | Physical Therapy Daily Note ---
PT Daily Note-Current Subjective Patient agrees to PT. Reports she is going home today. Spouse present. Mental Status Patient Orientation: Normal For Age Transfers SCALE: Activities may be completed with or without assistive devices. 2-Ceelrxpnjp-kbtqmwf completes the activity by him/herself with no assistance from a helper. 5-Set-up or Clean-up Assistance-helper sets up or cleans up; patient completes activity. [place] assists only prior to or following the activity. 4-Supervision or Touching Assistance-helper provides verbal cues and/or touching/steadying and/or contact guard assistance as patient completes activity. Assistance may be provided throughout the activity or intermittently. 3-Partial/Moderate Assistance-helper does LESS THAN HALF the effort. [place] lifts, holds or supports trunk or limbs, but provides less than half the effort. 2-Substantial/Maximal Assistance-helper does MORE THAN HALF the effort. [place] lifts or holds trunk or limbs and provides more than half the effort. 9-Brhqmjlvv-zilkoh does ALL the effort. Patient does none of the effort to complete the activity. Or, the assistance of 2 or more helpers is required for the patient to complete the activity. If activity was not attempted, code reason: 7-Patient Refused. 9-Not Applicable-not attempted and the patient did not perform the activity before the current illness, exacerbation or injury. 10-Not Attempted due to Environmental Limitations-(lack of equipment, weather restraints, etc.). 88-Not Attempted due to Medical Conditions or Safety Concerns. Sit to Stand (QC): 6 Gait Training Distance: 200' x 2 Walk 10 feet (QC): 6 Walk 50 ft with 2 Turns(QC): 6 Walk 150 ft (QC): 6 Gait Assistive Device: FWW slow, reciprocal pattern Stair Training Stair Training: Handrails/: 2 handrails #of Steps: 5 1 Step (curb) (QC): 4 4 Steps (QC): 4 Stairs: Pattern: Step to Exercises Seated Therapy Exercises: Ankle pumps, Long arc quads Seated Reps: 15 Assessment Improved left knee extension with LAQ. Flexion ~80 degrees in seated position. PT instructed patient and spouse to perform HEP issued by physician at preop 3/day at 15 reps each. Both voice understanding. Patient requests a second session on this date. PT will return later this morning. 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 Alf Goals 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 Time Frame: Oct 23, 2021 Roll Left & Right (QC): 6 Sit to Lying (QC): 6 Lying-Sitting on Side/Bed(QC): 6 Sit to Stand (QC): 6 Chair/Xat-aw-Zkuju Xfer(QC): 6 Walk 10 feet (QC): 6 Walk 50ft with 2 Turns (QC): 6 Walk 150 ft (QC): 6 1 Step (curb) (QC): 4 4 Steps (QC): 4 PT Plan Treatment/Plan Treatment Plan: Continue Plan of Care Treatment Plan: Bed Mobility, Education, Functional Activity Alirio, Functional Strength, Gait, Safety, Therapeutic Exercise, Transfers Treatment Duration: Oct 23, 2021 Frequency: 11 times per week Estimated Hrs Per Day: .25 hour per day Patient and/or Family Agrees t: Yes Time/GCodes Time In: 742 Time Out: 755 Total Billed Treatment Time: 13 Total Billed Treatment 1 visit FA 13 min KAL GOYAL PT Oct 18, 2021 09:15
--- NOTE | 2021-10-18 09:39 | Progress Note ---
Subjective Subjective Date Seen by Provider: Oct 18, 2021 Time Seen by Provider: 09:30 PT AMBULATING IN THE HALLWAY TODAY - SHE REPORTS THAT HER PAIN IS IMPROVED COMPARED TO YESTERDAY. SHE REPORTS THAT SHE IS READY FOR DISCHARGE. Review of Systems General: No Chills, No Fatigue HEENT: No Head Aches Pulmonary: No Dyspnea, No Cough Cardiovascular: No: Chest Pain Gastrointestinal: No: Nausea, Abdominal Pain Musculoskeletal: leg pain Neurological: No: Weakness All Other Systems Reviewed All Other Systems Reviewed: Yes Objective Exam Vital Signs Vital Signs Date Time Temp Pulse Resp B/P (MAP) Pulse Ox O2 Delivery O2 Flow Rate FiO2 10/18/21 09:00 Room Air 10/18/21 07:20 36.9 98 18 165/77 (106) 92 Room Air 10/18/21 04:40 96 158/87 (110) 10/18/21 04:32 167/91 (116) 10/18/21 03:55 36.9 105 20 179/101 (127) 94 Room Air 10/17/21 23:56 37.1 107 18 154/81 (105) 90 Room Air 10/17/21 20:30 Room Air 10/17/21 19:42 36.2 104 18 160/87 (111) 96 Room Air 10/17/21 16:00 36.8 94 20 158/89 (112) 93 Room Air 10/17/21 11:29 36.4 100 18 117/76 (90) 98 Room Air 10/17/21 11:22 36.2 94 20 120/78 (92) 99 Room Air 10/17/21 11:19 36.4 94 18 163/90 (114) 93 Room Air I & O 10/18/21 07:00 Intake Total 2040 ml Balance 2040 ml General Appearance: No Apparent Distress, WD/WN HEENT: PERRL/EOMI, Pharynx Normal Neck: Full Range of Motion, Non Tender, Supple Respiratory: Chest Non Tender, Lungs Clear, Normal Breath Sounds, No Accessory Muscle Use, No Respiratory Distress Cardiovascular: Regular Rate, Rhythm, No Murmur Gastrointestinal: Normal Bowel Sounds, No Organomegaly, No Pulsatile Mass, Non Tender, Soft Rectal: Deferred Extremity: Normal Capillary Refill (OF TOES), Other (LEFT LEG WITH KNEE IN SURGICAL DRESSING AND WITH COMPRESSION SOCKS AND ICE PACK IN PLACE) Neurologic/Psychiatric: Alert, Oriented x3, No Motor/Sensory Deficits, Normal Mood/Affect Skin: Normal Color, Warm/Dry Lymphatic: No Adenopathy Results Lab Laboratory Tests 10/18/21 05:45: Hemoglobin 11.5, Hematocrit 35 Assessment/Plan Assessment/Plan Admission Dx LEFT KNEE OSTEOARTHRITIS STATUS POST LEFT TOTAL KNEE REPLACEMENT UNCONTROLLED POST-SURGICAL PAIN CHRONIC HYPERTENSION DIABETES MELLITUS PERIPHERAL NEUROPATHY DEPRESSION Assessment and Plan LEFT KNEE OSTEOARTHRITIS STATUS POST LEFT TOTAL KNEE REPLACEMENT UNCONTROLLED POST-SURGICAL PAIN CHRONIC HYPERTENSION DIABETES MELLITUS PERIPHERAL NEUROPATHY DEPRESSION LEFT KNEE OSTEOARTHRITIS STATUS POST LEFT TOTAL KNEE REPLACEMENT WITH UNCONTROLLED POST-SURGICAL PAIN - PT ENCOURAGED TO PARTICIPATE IN THERAPY DIRECTED BY DR. 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 DIABETES MELLITUS - CHECK FSBS, RESTARTED METFORMIN ON 10/17/21 PERIPHERAL NEUROPATHY - GABAPENTIN RESTARTED. DEPRESSION - RESTARTED CYMBALTA. DVT PROPHYLAXIS WITH LOVENOX AND COMPRESSION SOCKS. GI PROPHYLAXIS WITH PPI THERAPY. ANTICIPATE PT TO BE ABLE TO DC TO HOME WITH HOME HEALTH. Admission Dx LEFT KNEE OSTEOARTHRITIS STATUS POST LEFT TOTAL KNEE REPLACEMENT UNCONTROLLED POST-SURGICAL PAIN CHRONIC HYPERTENSION DIABETES MELLITUS PERIPHERAL NEUROPATHY DEPRESSION Clinical Quality Measures Admission Status Admission Dx LEFT KNEE OSTEOARTHRITIS STATUS POST LEFT TOTAL KNEE REPLACEMENT UNCONTROLLED POST-SURGICAL PAIN CHRONIC HYPERTENSION DIABETES MELLITUS PERIPHERAL NEUROPATHY DEPRESSION GLEN LEGGETT MD Oct 18, 2021 09:39
[2021-10-18] MEDS: ASPIRIN E.C. 81 MG (ECOTRIN) TAB PO SCH (09:48)
[2021-10-18] MEDS: VITAMIN D3 25 MCG (1,000 UNITS) TABLET PO SCH (09:48)
[2021-10-18] MEDS: GABAPENTIN 300 MG (NEURONTIN) CAP PO SCH (09:48)
[2021-10-18] MEDS: oxyCODONE/APAP 5/325MG (PERCOCET 5) TABLET PO SCH (09:48)
[2021-10-18] MEDS: LORATADINE (CLARITIN) 10 MG TAB PO SCH (09:48)
[2021-10-18] MEDS: DULoxetine 30 MG (CYMBALTA) CAP PO SCH (09:48)
[2021-10-18] MEDS: ARTIFICAL TEARS 0.4 ML UNIT DOSE (REFRESH PLUS) OU SCH (09:49)
[2021-10-18] MEDS: PANTOPRAZOLE 20 MG TABLET (PROTONIX) PO SCH (09:49)
[2021-10-18] MEDS: metFORMIN 500 MG (GLUCOPHAGE) TAB PO SCH (09:49)
[2021-10-18] MEDS: SENNA W/DOCUSATE (SENOKOT S) TABLET PO SCH (09:49)
--- NOTE | 2021-10-18 09:50 | Physical Therapy Progress Note ---
Therapy Progress Note Patient declined second session due to fatigue from taking a shower. Patient and spouse report they are going home this morning and feel comfortable with exercises and mobility. 1 visit KAL GOYAL PT Oct 18, 2021 09:50
== END 2021-10-18 10:55 | disposition home health service (06) | DRG 470 ==
LOC: 4TH 05:48 → SURG 05:49 → 4TH 09:28
PROVIDERS: ADMIT Orthopaedic Surgery; ATTEND Orthopaedic Surgery
PROC: 0SRD0J9 Replacement of Left Knee Joint with Synthetic Substitute, Cemented, Open Approach (ICD-10-PCS; principal; 2021-10-16 07:29)
DX: M17.12 Unilateral primary osteoarthritis, left knee (principal); F32.A Depression, unspecified; I10 Essential (primary) hypertension; E11.40 Type 2 diabetes mellitus with diabetic neuropathy, unspecified; F41.9 Anxiety disorder, unspecified; Z86.16 Personal history of COVID-19; Z79.82 Long term (current) use of aspirin; Z79.84 Long term (current) use of oral hypoglycemic drugs; Z79.899 Other long term (current) drug therapy; Z87.891 Personal history of nicotine dependence
CPT/HCPCS: 36415; 73560; 85014; 85018; 86850; 86900; 86901

== ENCOUNTER 2021-12-06 14:42 | Outpatient (RCR) | payer MEDICARE, OTHER ==
[~2021-12-06 14:42] MED LIST changes: +ASPI-1238 PO; +CHOL100048 PO; +CYCL1DRO OU; +ESTR2TAB3 PO; +GABA300C PO; +METF-397 PO; +ZINC50TA58 PO
== END 2021-12-07 | disposition home or self-care (01) ==
PROVIDERS: ATTEND Orthopaedic Surgery
DX: Z47.1 Aftercare following joint replacement surgery (principal); I10 Essential (primary) hypertension; Z96.652 Presence of left artificial knee joint

== ENCOUNTER 2022-01-03 11:25 | Outpatient (RCR) | payer MEDICARE, OTHER | END 2022-01-03 12:06 | disposition home or self-care (01) | PROVIDERS: ATTEND Orthopaedic Surgery | DX: Z47.1 Aftercare following joint replacement surgery (principal); I10 Essential (primary) hypertension; Z96.652 Presence of left artificial knee joint ==

== ENCOUNTER → 2022-04-16 | Outpatient (CLI) | payer MEDICARE, OTHER | END | disposition home or self-care (01) | LOC: PREOP 06:17 | PROVIDERS: ATTEND Surgery | DX: Z01.818 Encounter for other preprocedural examination (principal) ==

== ENCOUNTER → 2022-09-02 | Outpatient (CLI) | payer MEDICARE, OTHER ==
--- NOTE | 2022-09-02 15:33 | Diagnostic Imaging Report ---
INDICATION: Routine screening. COMPARISON: 08/30/2021 and 06/01/2020. TECHNIQUE: 2D and 3D bilateral screening mammography was performed with CAD. FINDINGS: Both breasts are heterogeneously dense, limiting the sensitivity of mammography. The parenchymal pattern is stable. No mass or malignant-appearing microcalcifications are seen. The axillae are unremarkable. IMPRESSION: No mammographic features suspicious for malignancy are identified. ACR BI-RADS Category 1: Negative. Result letter will be mailed to the patient. Note: At least 10% of breast cancer is not imaged by mammography. Dictated by: Dictated on workstation # [id number]
--- NOTE | 2022-09-02 16:07 | Diagnostic Imaging Report ---
INDICATION: Postmenopausal screening COMPARISON: 01/24/2010 FINDINGS: AP Spine L1-L4: [BMD (g/cm2): 1.246] [T-Score: 0.4] [Z-Score: 1.6] [BMD Previous: 1.327] [BMD % Change: -6.1] LT Hip Neck: [BMD (g/cm2): 0.940] [T-Score: -0.7] [Z-Score: 0.7] LT Hip Total: [BMD (g/cm2):0.992] [T-Score:-0.1] [Z-Score: 1.0] [BMD Previous: 1.026] [BMD % Change: -3.3] RT Hip Neck: [BMD (g/cm2):0.917] [T-Score:-0.9] [Z-Score:0.5] RT Hip Total: [BMD (g/cm2):0.984] [T-score:-0.2] [Z-Score:0.9] [BMD Previous:0.971] [BMD % Change:1.3] *Indicates significant change from prior examination based on 95% confidence level. World Health Organization criteria for BMD interpretation classify patients as Normal (T-score at or above -1.0), Osteopenic (T-score between -1.0 and -2.5) or Osteoporotic (T-score at or below -2.5). LIMITATIONS AND MODIFICATION: None. FRACTURE RISK (FRAX SCORE): The ten year probability of (%): Major Osteoporotic Fracture: [na] Hip Fracture: [na] IMPRESSION: 1. Normal bone mineral density. 2. Bone mineral density has decreased by a statistically significant amount, as detailed above. 3. See below National Osteoporosis Foundation guidelines on when to potentially initiate pharmacologic therapy. Based on the National Osteoporosis Foundation Guidelines, pharmacologic treatment should be initiated in any of the following, unless clinical conditions suggest otherwise: * Any patient with prior fragility fracture of the hip or vertebrae. A spine fracture indicates 5X risk for subsequent spine fracture and 2X risk for subsequent hip fracture. * Osteoporosis (T-score <-2.5). * Postmenopausal women and men age 50 and older with low bone mass/osteopenia (T-score between -1.0 and -2.5) by DXA and 10-year major osteoporotic fracture greater than 20% or a 10-year probability of hip fracture greater than 3%. These fracture risks are supplied above in the FRAX score, if applicable. * Clinician judgement and/or patient preferences may indicate treatment for people with 10-year fracture probabilities above or below these levels. Dictated by: Dictated on workstation # [id number]
== END ==
LOC: RAD 09:59
PROVIDERS: ATTEND Family Medicine
DX: Z12.31 Encounter for screening mammogram for malignant neoplasm of breast (principal); Z13.820 Encounter for screening for osteoporosis; M85.89 Other specified disorders of bone density and structure, multiple sites; Z78.0 Asymptomatic menopausal state
CPT/HCPCS: 77063; 77067; 77080